=== PATIENT | female | born 2000 | race Caucasian/White ===

== ENCOUNTER 2022-10-29 13:02 | Outpatient (CLI) | payer MEDICAID, SELFPAY ==
--- NOTE | 2022-10-29 13:29 | XR_ITS ---
WS: [id number] Exam: XR scoliosis survey [id number] Date/Time of Exam: 10/29/2022 1:40 PM Reason For Exam: JUVENILE IDIOPATHIC SCOLIOSIS, THORACIC REGION Standing AP and lateral images of the thoracic and lumbar spine are submitted for scoliosis evaluatio n. Desir rods span the thoracic and lumbar spine extending from T3 to L4. The rods are intact witho ut evidence of hardware failure. There is dextroscoliosis of the thoracic spine measuring 13 degrees. There is levoscoliosis of the upper lumbar spine measuring approximately 8 degrees. The lumbar lordo sis and thoracic kyphosis are well-maintained. There are no fractures or significant bony anomalies v isualized. XR/XR scoliosis survey [id number] IMPRESSION: 1. Dextroscoliosis of the T-spine measuring 13 degrees. 2. Levoscoliosis of the upper lumbar spine measuring about 8 degrees. 3. Desir rods and multiple pedicle screws bridge the posterior thoracic an d lumbar spine from T3 to L4. No sign of hardware failure or other significant complication.
== END 2022-10-29 13:03 | disposition home or self-care (01) ==
LOC: RAD 13:13
PROVIDERS: Family Provider Nurse Practitioner Family; PCP Family Medicine; Visit Provider Family Medicine
DX: M41.114 Juvenile idiopathic scoliosis, thoracic region (principal); M54.50 Low back pain, unspecified; M62.830 Muscle spasm of back
CPT/HCPCS: 72083

== ENCOUNTER → 2023-02-14 10:39 | Outpatient (BNVA) | payer MEDICAID, SELFPAY | PROVIDERS: Family Provider Nurse Practitioner Family; PCP Family Medicine; Referring Provider Family Medicine; Visit Provider Physician Assistant | DX: M54.16 Radiculopathy, lumbar region (principal); M48.062 Spinal stenosis, lumbar region with neurogenic claudication; M41.9 Scoliosis, unspecified; Z98.1 Arthrodesis status | CPT/HCPCS: 72070; 72110 ==

== ENCOUNTER 2023-03-12 15:02 | Outpatient (CLI) | payer MEDICAID, SELFPAY ==
--- NOTE | 2023-03-12 15:15 | MR_ITS ---
WS: [id number] MRI LUMBAR SPINE NONCONTRAST HISTORY: Back Pain COMPARISON: Lumbar spine radiograph 02/14/2023. TECHNIQUE: Sagittal and axial multisequence imaging is submitted. Prior thoracolumbar posterior fusion due to scoliosis repair. Posterior vertical rods and pedicle screws throughout a large portion of the thoracic spine and from L1-L4. No fractures or marrow edema. There is artifact from metallic rods. Mild straightening of the lumbar lordosis. Conus terminates normally at L1-2 disc level. L1-L2: No stenosis. L2-L3: No central stenosis. L3-L4: No central stenosis. L4-L5: Mild disc bulging. Severe facet and ligamentum flavum hypertrophy. Mild LEFT foraminal stenosi s. L5-S1: Moderate size central disc protrusion contacting the ventral thecal sac. There is slight conta ct on the nerve roots, greatest involving the traversing S1 nerve roots. Mild bilateral foraminal manjinder nosis. Mild central and bilateral subarticular recess stenosis. IMPRESSION: 1. Moderate size central disc protrusion at L5-S1 contacting the traversing S1 nerve roots. Mild cent ral, subarticular recess and bilateral foraminal stenosis. 2. There is extensive posterior thoracolumbar fusion hardware. No additional areas of high-grade sten osis.
== END 2023-03-12 15:03 | disposition home or self-care (01) ==
PROVIDERS: Family Provider Nurse Practitioner Family; PCP Family Medicine; Visit Provider Physician Assistant
DX: M48.062 Spinal stenosis, lumbar region with neurogenic claudication (principal); M51.27 Other intervertebral disc displacement, lumbosacral region
CPT/HCPCS: 72148